=== PATIENT | male | born 1950 | race Caucasian/White ===

== ENCOUNTER → 2016-11-11 | Day surgery (SDC) | payer MEDICARE, BC ==
--- NOTE | 2016-10-31 11:20 | HP ---
CC: Dr. Rosado; Dr. Jeff Lynn; [facility] HISTORY AND PHYSICAL: DATE OF ADMISSION: 11/11/16 CHIEF COMPLAINT: Blurring of vision. HISTORY OF PRESENT ILLNESS: This 66-year-old white male has had blurring of vision over the past ye ar that is worse lately. He is scheduled with Dr. Jeff Lynn at the [facility] for left c ataract extraction on November 11 and the right cataract will be done, 11/18/16. PAST MEDICAL HISTORY: The patient is under the care of Dr. Richard Rosado. He has a history of GE reflux; otherwise, he is healthy. PAST SURGICAL HISTORY: Includes in 1998, a right inguinal hernia repair. CURRENT MEDICATIONS: 1. Singulair 10 mg daily 2. Ranitidine 300 mg q.h.s. 3. He also uses saline nasal spray daily for chronic nasal congestion. ALLERGIES: No known drug allergies. FAMILY HISTORY: Father, history of hypertension, had prostate CA in his 80s. Otherwise, family hist ory unremarkable. SOCIAL HISTORY: The patient is . 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 He is a nonsmoker. Alc ohol is limited to a rate scotch. REVIEW OF SYSTEMS: Other than chronic nasal congestion, review of systems is negative to detailed q uestioning. Specifically, he denies any dyspnea, cough, chest pain, palpitations, or edema symptoms . PHYSICAL EXAMINATION GENERAL: This is a 66-year-old white male, who is alert, pleasant, and cooperative. VITAL SIGNS: Height 5 feet 4 inches; weight 148 pounds, stable. Blood pressure 124/66, supine; pul se 72. HEENT: Ears normal. Eyes not examined. Mouth: Teeth in good repair. Tongue in the midline. Pha rynx is clear. NECK: Good range of motion. No adenopathy. Thyroid benign. BACK: Normal curvature. No tenderness noted of the spine or CVA areas. LUNGS: Clear. HEART: Rhythm is regular. No murmurs. Apical pulse 72 beats per minute. EKG shows normal sinus r hythm, within normal limits. ABDOMEN: Flat. Active bowel sounds. Abdomen is soft, nontender. No obvious masses or organomegal y. EXTREMITIES: The patient ambulates independently. No cyanosis. No edema symptoms. IMPRESSION: The patient is medically stable and cleared for his upcoming bilateral cataract surger y with Dr. Jeff Lynn. LISA NUÑEZ, [employer] [id number]/[facility] #: [id number]
[~2016-11-11] MED LIST: Acetaminophen TAB* 325 MG PO PRN; Buffered Lidocaine 1% SYR 3ML* 3 ML/SYR SYRINGE INTRADERM ONE; Buffered Lidocaine 1% SYR 3ML* 3 ML/SYR SYRINGE ONE; Cyclopentolate 1% OPTH.SOL* 2 ML BTL ONE; Flurbiprofen 0.03% OPTH.SOL* 2.5 ML BTL ONE; Lidocaine 1% MPF* 2 ML VIAL ONE; Midazolam* 1 MG/ML 2 ML VIAL (2 MG) ONE; Neomycin/Polymy/Dex OPHTH.OIN* 3.5 GM ONE; Phenylephrine 2.5% OPTH.SOL* 2 ML BTL ONE; Tetracaine 0.5% OPTH.SOL 4 ML* 1 DROP BTL ONE; Tropicamide 1% OPTH.SOL* BTL ONE; fentaNYL* 50 MCG/ML 2 ML VIAL (100 MCG VIAL) ONE
[2016-11-11 08:50] VITALS: BP 116/74
--- NOTE | 2016-11-11 10:53 | OP ---
DATE OF OPERATION: 11/11/16 [facility] DATE OF : 48 SURGEON: Dr. Jeff Lynn. ROUTE MANAGER: None. ANESTHESIOLOGIST: Tomas Stover MD ANESTHESIA: Topical with intravenous sedation. PRE-OP DIAGNOSIS: Cataract, left eye. POST-OP DIAGNOSIS: Cataract, left eye. OPERATIVE PROCEDURE: Phacoemulsification and cataract extraction with posterior chamber intraocular lens implant, left eye. COMPLICATIONS: None. BLOOD LOSS: None. DESCRIPTION OF PROCEDURE: The patient was brought to the operating room and received a small amount of intravenous sedation. A drop of Tetracaine was placed in his left eye. He was prepped and draped in the usual sterile fashion for ophthalmic surgery and attention was directed to the left eye where a speculum was placed. A paracentesis was created at the 5 o'clock position and 0.1 cc of 1 percent preservative-free Lidocaine was injected into the anterior chamber followed by DisCoVisc. The eye was digitally stabilized while a 2.75 mm keratome was used to create a triplanar clear corneal incision at the 3 o'clock position. A continuous curvilinear capsulorrhexis was created with a cystotome and Utrata forceps. BSS on a cannula was used to hydrodissect the lens from the capsule. Phacoemulsification was performed in a [id number]-obnonmk technique to create four fragments which were removed. Residual cortical material was removed with irrigation and aspiration. DisCoVisc was used to inflate the capsular bag and an SN60AT 13.0 diopter lens was folded and inserted into the capsular bag. DisCoVisc was removed using irrigation and aspiration. BSS on a cannula was used to hydrate the corneal stroma and seal the wound. At the end of the case the pupil was round and the lens was centered. The eye was of normal pressure and the wound was water tight. The speculum was removed and topical Maxitrol ointment was placed on the surface of the eye. The eye was closed, patched and shielded and the patient was sent to the recovery room in stable condition with post operative instructions and follow-up appointment given. [id number]/[facility] #: [id number] MTDD
== END | disposition home or self-care (01) ==
LOC: OREAST 06:55
PROVIDERS: ATTEND Ophthalmology
DX: H25.12 Age-related nuclear cataract, left eye (principal)
CPT/HCPCS: A9270-GY; J2250; J3010; V2632

== ENCOUNTER → 2016-11-18 | Day surgery (SDC) | payer MEDICARE, BC ==
[2016-11-18 11:15] VITALS: BP 122/63
--- NOTE | 2016-11-18 11:53 | OP ---
DATE OF OPERATION/DATE OF DICTATION: 11/18/2016 - [facility] DATE OF : 1950. SURGEON: Dr. Jeff Lynn. FORMING DEPARTMENT END FINDER: None. ANESTHESIOLOGIST: Teofilo Aguila MD ANESTHESIA: Topical with intravenous sedation. PRE-OP DIAGNOSIS: Cataract, right eye. POST-OP DIAGNOSIS: Cataract, right eye. OPERATIVE PROCEDURE: Phacoemulsification and cataract extraction with posterior chamber intraocular lens implant, right eye. COMPLICATIONS: None. BLOOD LOSS: None. DESCRIPTION OF PROCEDURE: The patient was brought to the operating room and received a small amount of intravenous sedation. A drop of Tetracaine was placed in his right eye. He was prepped and draped in the usual sterile fashion for ophthalmic surgery and attention was directed to the right eye where a speculum was placed. A paracentesis was created at the 11 o'clock position and 0.1 cc of 1 percent preservative-free Lidocaine was injected into the anterior chamber followed by DisCoVisc. The eye was digitally stabilized while a 2.75 mm keratome was used to create a triplanar clear corneal incision at the 9 o'clock position. A continuous curvilinear capsulorrhexis was created with a cystotome and Utrata forceps. BSS on a cannula was used to hydrodissect the lens from the capsule. Phacoemulsification was performed in a divide-and- conquer technique to create four fragments which were removed. Residual cortical material was removed with irrigation and aspiration. DisCoVisc was used to inflate the capsular bag and an SN60AT 16.5 diopter lens was folded and inserted into the capsular bag. DisCoVisc was removed using irrigation and aspiration. BSS on a cannula was used to hydrate the corneal stroma and seal the wound. At the end of the case the pupil was round and the lens was centered. The eye was of normal pressure and the wound was water tight. The speculum was removed and topical Maxitrol ointment was placed on the surface of the eye. The eye was closed, patched and shielded and the patient was sent to the recovery room in stable condition with post operative instructions and follow-up appointment given. [id number]/[facility] #: [id number] MTDD
== END | disposition home or self-care (01) ==
LOC: OREAST 08:29
PROVIDERS: ATTEND Ophthalmology
DX: H25.11 Age-related nuclear cataract, right eye (principal); K21.9 Gastro-esophageal reflux disease without esophagitis
CPT/HCPCS: A9270-GY; J2250; J3010; V2632